=== PATIENT | male | born 1965 | race Caucasian/White ===

== ENCOUNTER 2019-01-01 00:45 | Emergency (ER) | payer OTHER ==
[~2019-01-01] VITALS: Ht 177.8 cm; Wt 88.5 kg
[2019-01-01 01:08] VITALS: Ht 177.8 cm; Wt 88.5 kg
[2019-01-01 01:48] LABS: BASOPHIL % 0.4 % (0-2); PLATELET COUNT 228 x10^3mcL (130-400)
[2019-01-01 01:49] LABS: RED CELL DISTRIBUTION WIDTH 16.4 % (11.5-14.5)
[2019-01-01 02:01] LABS: BILIRUBIN TOTAL 0.15 mg/dL (0.20-1.00); CALCIUM 8.5 mg/dL (8.5-10.1); CARBON DIOXIDE 30.5 mmol/L (21-32); CREATININE SERUM 1.4 mg/dL (0.7-1.3); TOTAL PROTEIN, SERUM 6.7 g/dL (6.4-8.2)
[2019-01-01 02:05] LABS: CHOLESTEROL/HDL RATIO 4.7
[2019-01-01 02:10] LABS: T3 TOTAL 0.77 ng/mL
[2019-01-01 02:28] LABS: FREE T4 0.96 ng/dL (0.76-1.46); FREE THYROXINE INDEX 2.9 ug/dL (1.4-4.5); T4(THYROXINE) 7.5 ug/dL (4.7-13.3)
[2019-01-01 03:31] VITALS: BP 106/64
== END 2019-01-01 03:31 | disposition home or self-care (01) ==
LOC: ED 00:45
PROVIDERS: Specialist
DX: R41.82 Altered mental status, unspecified (principal); E16.2 Hypoglycemia, unspecified; I10 Essential (primary) hypertension; E11.9 Type 2 diabetes mellitus without complications
CPT/HCPCS: 36415; 82962; 83880; 84439; J3490